=== PATIENT | female | born 1975 | race American Indian/Alaskan Native ===

== ENCOUNTER 2017-02-26 07:37 | Emergency (ER) | payer MEDICAID ==
[2017-02-26 08:23] VITALS: BP 118/98
--- NOTE | 2017-02-26 09:36 | Emergency Department Report ---
HPI - General Chief Complaint: Upper Respiratory Infection Time Seen by Provider: 02/26/17 09:25 - HPI HPI: Patient is a 41-year-old female presents to ED complaining of flulike symptoms 2 days patient states she felt chills, productive cough and generalized body aches as worsening since 2 days ago. Patient states productive cough is yellowish in nature. Patient admits one episode of nonbloody watery stools yesterday. Patient denies any history of asthma or respiratory disease. She states she is taking [id number] medication for cough and cold to no relief She states allergy to Phenergan and Demerol and is not taking any other medications. Patient denies fever so she shortness of breath/chest pain/dizziness or headache ED Past Medical Hx - Past Medical History Previous Medical History?: Yes Hx Psychiatric Treatment: Yes (Anxiety) Hx Asthma: Yes (use for anxiety) - Surgical History Past Surgical History?: Yes Additional Surgical History: tubaligation - Social History Smoking Status: Current Every Day Smoker Substance Use Type: Prescribed - Medications Home Medications: Home Medications Medication Instructions Recorded Confirmed Last Taken Type Acetamin/Codeine 120-12Mg/5 ml 5 ml PO TID PRN #60 ml 02/26/17 Unknown Rx [Tylenol/Codeine] Amoxicillin/K Clav Tab [Augmentin 1 tab PO Q12HR #14 tab 02/26/17 Unknown Rx 875 mg] D-Methorphan/PE/Acetaminophen 1 each PO BID #14 tablet 02/26/17 Unknown Rx [Tylenol Cold Multi-Symp Caplet] ED Review of Systems ROS: Stated complaint: FLU SYMPTOMS/CHEST PAIN Other details as noted in HPI Constitutional: denies: chills, fever Eyes: denies: eye pain, eye discharge, vision change ENT: denies: ear pain, throat pain Respiratory: cough. denies: shortness of breath, wheezing Cardiovascular: denies: chest pain, palpitations Endocrine: no symptoms reported Gastrointestinal: denies: abdominal pain, nausea, vomiting, diarrhea Genitourinary: denies: urgency, dysuria, frequency, hematuria, discharge Musculoskeletal: denies: back pain, joint swelling, arthralgia Skin: denies: rash, lesions Neurological: denies: headache, weakness, paresthesias Psychiatric: denies: anxiety, depression Hematological/Lymphatic: denies: easy bleeding, easy bruising Physical Exam - Physical Exam Vital Signs: Vital Signs 02/26/17 08:17 Temperature 98.7 F Pulse Rate 86 Respiratory 16 Rate Blood Pressure 118/98 O2 Sat by Pulse 100 Oximetry Physical Exam: GENERAL: Alert and oriented x3, mild distress, Normal Gait, atraumatic. Coughing intermittently vigorously during exam HEAD: Head is normocephalic and a-traumatic. EYES: Extra ocular muscles are intact. Pupils are equal, round, and reactive to light and accommodation. EARS: symetrical, atraumatic, non tender, ear canal clear and moderate cerumen, tympanic membrance non inflamed. gross auditory nml bilaterally. NOSE: Nose symetrical, Nontender,Nostrils flared and erythematous bilat but appeared normal. MOUTH:Mouth is well hydrated and without lesions. Tonsils nonerythematous or swollen, Uvula midline, Tongue not elevated. Mucous membranes are moist. Posterior pharynx clear, no exudate or lesions. Patent airways. NECK: Supple. Non edematous, No lymphadenopathy or thyromegaly. LUNGS: Symetrical with respiration, No wheezing, no rales or crackles, CTAB. HEART: S1, S2 present, regular rate and rhythm without murmur, no rubs, no gallops. Non tender to palpation ABDOMEN: No organomegaly was noted,Positive bowel sounds, soft, and non- distended. . Nontender to palpation on all Quadrants, NO CVA tenderness. BACK: Full range of motion, no spinal tenderness, nontender to palpation. EXTREMITIES/MUSCULOSKELETAL: No cyanosis, clubbing, rash, lesions or edema. Full ROM bilaterally. UE Pulses 2+ bilaterally. SKIN: Warm and dry, No lesions, No ulceration or induration present. ED Course Vital Signs 02/26/17 08:17 Temperature 98.7 F Pulse Rate 86 Respiratory 16 Rate Blood Pressure 118/98 O2 Sat by Pulse 100 Oximetry ED Medical Decision Making - Radiology Data Radiology results: report reviewed, image reviewed Fluoro Time In Minutes: ROUTINE CHEST, TWO VIEWS: HISTORY: chest pain. The trachea, heart, mediastinal contour, lung boles and bony thorax are unremarkable. Linear metallic density overlies the left lateral breast which is of uncertain significance. Please correlate with the patient's surgical or biopsy history. IMPRESSION: Unremarkable chest x-ray. Transcribed By: TTR Dictated By: TROY HAMMOND JR, MD Electronically Authenticated By: TROY HAMMOND JR, MD Signed Date/Time: 02/26/17 1010 - Medical Decision Making 41-year-old female presents with urinary tract infection ED course: urinalysis, urine test, influenza A B and chest x-ray ordered Chest x-ray normal series of the above. Influenza test negative , test negative Urinalysis positive for bacteria Patient received Zofran ODT and Tylenol 3 in ED Discussed all findings with the patient. Discussed with patient to continue symptomatic relief with cough suppressant and cold medicines Discussed antibiotics prescriptions for UTI. Discussed the patient to follow up with primary care physician in 3 days. Vital signs are stable patient has no fever patient is in no acute distress or respiratory distress. She is neurologically intact. discussed the patient to return to ED for any worsening symptoms or new symptoms arise Critical care attestation.: If time is entered above; I have spent that time in minutes in the direct care of this critically ill patient, excluding procedure time. ED Disposition Clinical Impression: Bronchitis UTI (urinary tract infection) Qualifiers: Urinary tract infection type: acute cystitis Hematuria presence: with hematuria Qualified Code(s): N30.01 - Acute cystitis with hematuria Disposition: - TO HOME OR SELFCARE Is pt being admited?: No Does the pt Need Aspirin: No Condition: Stable Instructions: Urinary Tract Infection in Women (ED), Chronic Bronchitis (ED) Additional Instructions: Follow-up with your primary care physician. If symptoms worsen or new symptoms arise please return to ED Prescriptions: Acetamin/Codeine 120-12Mg/5 ml [Tylenol/Codeine] 5 ml PO TID PRN #60 ml PRN Reason: Pain Amoxicillin/K Clav Tab [Augmentin 875 mg] 1 tab PO Q12HR #14 tab D-Methorphan/PE/Acetaminophen [Tylenol Cold Multi-Symp Caplet] 1 each PO BID # 14 tablet Referrals: EMILY ACOSTA [Other] - 3-5 Days Forms: Work/School Release Form(ED) Time of Disposition: 10:56
[2017-02-26] MEDS ORDERED: TYLENOL/CODEINE PO ONE (09:44)
[2017-02-26] MEDS ORDERED: ZOFRAN ODT PO ONE (09:44)
[2017-02-26 10:08] LABS: Bacteria,Urine 1+ /HPF (Negative); Bilirubin,Urine NEG (Negative); Blood,Urine NEG (Negative); Ketones,Urine 20 mg/dL (Negative); Leukocyte Esterase,Urine TR (Negative); Mucus,Urine 3+ /HPF; Nitrite,Urine NEG (Negative); Urobilinogen,Urine < 2.0 mg/dL (<2.0)
--- NOTE | 2017-02-26 10:14 | XRay Report ---
ROUTINE CHEST, TWO VIEWS: HISTORY: chest pain. The trachea, heart, mediastinal contour, lung boles and bony thorax are unremarkable. Linear metallic density overlies the left lateral breast which is of uncertain significance. Please correlate with the patient's surgical or biopsy history. IMPRESSION: Unremarkable chest x-ray.
== END 2017-02-26 11:27 | disposition home or self-care (01) ==
LOC: ED 07:37
DX: N39.0 Urinary tract infection, site not specified (principal); J40 Bronchitis, not specified as acute or chronic; F17.210 Nicotine dependence, cigarettes, uncomplicated
CPT/HCPCS: 36415; 71020; 81001; 84702; 87400; 93005; 93010; 99284; Q0162

== ENCOUNTER 2019-04-26 15:00 | Emergency (ER) | payer SELFPAY ==
[2019-04-26] MEDS ORDERED: SODIUM CHLORIDE 0.9% 500 ML 500 ML IV ONE (16:37)
[2019-04-26] MEDS ORDERED: MORPHINE 4 MG/1 ML INJ IV ONE (16:38)
--- NOTE | 2019-04-26 16:40 | Emergency Department Report ---
ED General Adult HPI - General Chief complaint: Dyspnea/Respdistress Stated complaint: SHORTNESS BREATH, LUMP IN MIDDLE OF CHEST Time Seen by Provider: 04/26/19 16:02 Source: patient, RN notes reviewed Mode of arrival: Ambulatory Limitations: No Limitations - History of Present Illness Initial comments: During the entire history and physical examination, I am pet trainer and escorted by metallurgy laboratory techniciandominique Morocho The patient is a 43-year-old female. The patient is not known to this provider previously. 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 She reports that she is currently taking systemic anticoagulation, xarelto She presents to the ER with complaint of nontraumatic left upper extremity pain, no swelling, chest wall pain. The symptoms have been present for 2-3 days. The chest wall pain does not radiate to the back, neck, shoulder. Her left upper extremity pain starts in her left proximal bicep, and then moves onto her left anterior chest wall. There is no vomiting. There is no exertional shortness of breath. There is no diaphoresis. She has taken aspirin today. There is no complaint of headache, neck pain, lower abdominal pain, vomiting, defecating blood, hematemesis, or urinary symptoms. She reports that she is not . Her chest wall pain is constant for the past couple of days. She also endorses that her chest wall pain increases with palpation and deep inspiration. She is concerned that she has a recurrent pulmonary embolism. She reports that she had a screening ultrasound performed in December 2018 of her upper extremity, which was negative. -: Gradual, days(s) Location: left, upper extremity Radiation: other (chest) Quality: aching Consistency: constant Improves with: rest Worsens with: movement - Related Data Previous Rx's Medication Instructions Recorded Last Taken Type Amoxicillin/K Clav Tab [Augmentin 1 tab PO Q12HR #14 tab 02/26/17 Unknown Rx 875 mg] D-Methorphan/PE/Acetaminophen 1 each PO BID #14 tablet 02/26/17 Unknown Rx [Tylenol Cold Multi-Symp Caplet] Acetaminophen [Non-Aspirin Extra 500 mg PO Q6HR PRN #30 tablet 04/26/19 Unknown Rx Strength] Famotidine [Pepcid] 20 mg PO BID #10 tablet 04/26/19 Unknown Rx Allergies Allergy/AdvReac Type Severity Reaction Status Date / Time meperidine [From Demerol] Allergy Seizure Verified 02/26/17 08:17 promethazine [From Phenergan] Allergy Seizure Verified 02/26/17 08:17 ED Review of Systems ROS: Stated complaint: SHORTNESS BREATH, LUMP IN MIDDLE OF CHEST Other details as noted in HPI Constitutional: denies: fever Eyes: denies: eye discharge ENT: denies: congestion Respiratory: denies: wheezing Cardiovascular: chest pain. denies: syncope Gastrointestinal: denies: nausea, vomiting, hematemesis, melena, hematochezia Genitourinary: denies: dysuria Musculoskeletal: myalgia Skin: denies: lesions Neurological: denies: headache Psychiatric: anxiety Hematological/Lymphatic: denies: easy bleeding ED Past Medical Hx - Past Medical History Previous Medical History?: Yes Hx Psychiatric Treatment: Yes (Anxiety) Hx Asthma: Yes (use for anxiety) Additional medical history: PE - Surgical History Past Surgical History?: Yes Additional Surgical History: tubaligation - Social History Smoking Status: Current Every Day Smoker Substance Use Type: Prescribed - Medications Home Medications: Home Medications Medication Instructions Recorded Confirmed Last Taken Type Amoxicillin/K Clav Tab [Augmentin 1 tab PO Q12HR #14 tab 02/26/17 Unknown Rx 875 mg] D-Methorphan/PE/Acetaminophen 1 each PO BID #14 tablet 02/26/17 Unknown Rx [Tylenol Cold Multi-Symp Caplet] Acetaminophen [Non-Aspirin Extra 500 mg PO Q6HR PRN #30 tablet 04/26/19 Unknown Rx Strength] Famotidine [Pepcid] 20 mg PO BID #10 tablet 04/26/19 Unknown Rx ED Physical Exam - General Limitations: No Limitations General appearance: alert, anxious - Head Head exam: Present: atraumatic, normocephalic - Eye Eye exam: Present: normal appearance, EOMI. Absent: nystagmus - ENT ENT exam: Present: normal exam, normal orophraynx, mucous membranes moist, normal external ear exam - Neck Neck exam: Present: normal inspection, full ROM. Absent: tenderness, meningismus - Respiratory Respiratory exam: Present: normal lung sounds bilaterally, chest wall tenderness. Absent: respiratory distress - Cardiovascular Cardiovascular Exam: Present: regular rate, normal rhythm, normal heart sounds. Absent: bradycardia, tachycardia, irregular rhythm, systolic murmur, diastolic murmur, rubs, gallop - GI/Abdominal GI/Abdominal exam: Present: soft, normal bowel sounds. Absent: distended, tenderness, guarding, rebound, rigid - Extremities Exam Extremities exam: Present: normal inspection, full ROM, other (2+ pulses noted in the bilateral upper and lower extremities. The pelvis is stable. There is no long bony tenderness. The muscular compartments are soft. There is no redness, pus, streaking or erythema.). Absent: pedal edema, joint swelling, calf tenderness - Back Exam Back exam: Present: normal inspection. Absent: tenderness, CVA tenderness (R), CVA tenderness (L), paraspinal tenderness, vertebral tenderness - Neurological Exam Neurological exam: Present: alert, other (there is no facial droop. The tongue is midline. Extraocular movements are intact bilaterally. Speaking in full sentences. Hearing is grossly intact. 5 out of 5 strength bilateral upper and lower extremities. Sensation is intact to light touch bilateral upper and lower extremities.). Absent: motor sensory deficit - Psychiatric Psychiatric exam: Present: anxious - Skin Skin exam: Present: warm, dry, intact, normal color. Absent: rash ED Course Vital Signs 04/26/19 04/26/19 18:03 18:37 Pulse Rate 82 82 Respiratory 18 18 Rate Blood Pressure 128/61 118/91 [Right] O2 Sat by Pulse 100 99 Oximetry ED Medical Decision Making - Lab Data Result diagrams: 04/26/19 16:58 04/26/19 16:58 Vital Signs 04/26/19 04/26/19 18:03 18:37 Pulse Rate 82 82 Respiratory 18 18 Rate Blood Pressure 128/61 118/91 [Right] O2 Sat by Pulse 100 99 Oximetry Temperature is documents to be 97.8 Vital Signs 04/26/19 04/26/19 18:03 18:37 Pulse Rate 82 82 Respiratory 18 18 Rate Blood Pressure 128/61 118/91 [Right] O2 Sat by Pulse 100 99 Oximetry Lab Results 04/26/19 04/26/19 04/26/19 Range/Units 16:58 16:58 16:58 WBC 6.7 (4.5-11.0) K/mm3 RBC 4.33 (3.65-5.03) M/mm3 Hgb 13.7 (10.1-14.3) gm/dl Hct 41.3 (30.3-42.9) % MCV 95 (79-97) fl MCH 32 (28-32) pg MCHC 33 (30-34) % RDW 13.3 (13.2-15.2) % Plt Count 224 (140-440) K/mm3 Lymph % (Auto) 32.7 (13.4-35.0) % [place] % (Auto) 8.1 H (0.0-7.3) % Eos % (Auto) 1.2 (0.0-4.3) % Baso % (Auto) 1.0 (0.0-1.8) % Lymph # 2.2 (1.2-5.4) K/mm3 [place] # 0.5 (0.0-0.8) K/mm3 Eos # 0.1 (0.0-0.4) K/mm3 Baso # 0.1 (0.0-0.1) K/mm3 Seg Neutrophils % 57.0 (40.0-70.0) % Seg Neutrophils # 3.8 (1.8-7.7) K/mm3 PT 12.6 (12.2-14.9) Sec. INR 0.93 (0.87-1.13) APTT 27.0 (24.2-36.6) Sec. D-Dimer 148.74 (0-234) ng/mlDDU Sodium 137 (137-145) mmol/L Potassium 4.5 (3.6-5.0) mmol/L Chloride 103.2 (98-107) mmol/L Carbon Dioxide 22 (22-30) mmol/L Anion Gap 16 mmol/L BUN 14 (7-17) mg/dL Creatinine 0.8 (0.7-1.2) mg/dL Estimated GFR > 60 ml/min BUN/Creatinine Ratio 18 % Glucose 81 (65-100) mg/dL Calcium 9.4 (8.4-10.2) mg/dL Magnesium (1.7-2.3) mg/dL Total Bilirubin 0.20 (0.1-1.2) mg/dL AST 23 (5-40) units/L ALT 18 (7-56) units/L Alkaline Phosphatase 71 (35-129) units/L Total Creatine Kinase (30-135) units/L Troponin T < 0.010 (0.00-0.029) ng/mL Total Protein 7.4 (6.3-8.2) g/dL Albumin 4.3 (3.9-5) g/dL Albumin/Globulin Ratio 1.4 % HCG, Qual (Negative) 04/26/19 04/26/19 04/26/19 Range/Units 16:58 16:58 19:26 WBC (4.5-11.0) K/mm3 RBC (3.65-5.03) M/mm3 Hgb (10.1-14.3) gm/dl Hct (30.3-42.9) % MCV (79-97) fl MCH (28-32) pg MCHC (30-34) % RDW (13.2-15.2) % Plt Count (140-440) K/mm3 Lymph % (Auto) (13.4-35.0) % [place] % (Auto) (0.0-7.3) % Eos % (Auto) (0.0-4.3) % Baso % (Auto) (0.0-1.8) % Lymph # (1.2-5.4) K/mm3 [place] # (0.0-0.8) K/mm3 Eos # (0.0-0.4) K/mm3 Baso # (0.0-0.1) K/mm3 Seg Neutrophils % (40.0-70.0) % Seg Neutrophils # (1.8-7.7) K/mm3 PT (12.2-14.9) Sec. INR (0.87-1.13) APTT (24.2-36.6) Sec. D-Dimer (0-234) ng/mlDDU Sodium (137-145) mmol/L Potassium (3.6-5.0) mmol/L Chloride (98-107) mmol/L Carbon Dioxide (22-30) mmol/L Anion Gap mmol/L BUN (7-17) mg/dL Creatinine (0.7-1.2) mg/dL Estimated GFR ml/min BUN/Creatinine Ratio % Glucose (65-100) mg/dL Calcium (8.4-10.2) mg/dL Magnesium 2.10 (1.7-2.3) mg/dL Total Bilirubin (0.1-1.2) mg/dL AST (5-40) units/L ALT (7-56) units/L Alkaline Phosphatase (35-129) units/L Total Creatine Kinase 133 (30-135) units/L Troponin T < 0.010 (0.00-0.029) ng/mL Total Protein (6.3-8.2) g/dL Albumin (3.9-5) g/dL Albumin/Globulin Ratio % HCG, Qual Negative (Negative) - EKG Data -: EKG Interpreted by Ut EKG shows normal: sinus rhythm Rate: normal - EKG Data 04/26/19 20:03 There is no prior EKG available for comparison. The EKG shows a sinus rhythm, 65 bpm, normal axis, QTC is 403 ms, there is some motion artifact. There is early repolarization. Atrial premature complex. Not consistent with STEMI. EKG #2 unremarkable and unchanged from prior. Early repolarization. Not consistent with STEMI. - Radiology Data Radiology results: report reviewed, image reviewed X-ray the chest is negative for acute disease. CT scan of the chest is negative for acute disease. - Medical Decision Making Differential diagnosis, including but not limited to: Costochondritis, GERD, gastritis, hiatal hernia, pneumonia, pulmonary embolism, DVT, aortic dissection Assessment and plan: 43-year-old female who reports currently being on systemic anticoagulation, xarelto, presenting with a complaint of chest wall pain, that radiates from the left upper extremity. She is very concerned about a recurrent DVT. Her pain appears to be out of proportion to exam. Given her history, and examination, a CT scan of the chest was obtained, which showed no pulmonary embolism, or aortic disease. Her upper extremities are symmetric, there is no evidence of redness, pus or streaking, the compartments are soft, and there is no evidence of compartment syndrome. Her troponin is negative 2, her screening laboratory studies are unremarkable, her EKG is unchanged 2. Patient at low risk for major adverse cardiac event as per the heart score. As for this institutions protocol, her contact information will be transferred to one of our local cardiology practices, to arrange close outpatient follow-up [facility] After extensive thorough workup and testing, and prolonged. Of observation in the emergency room, no emergent condition was identified, after appropriate testing was obtained based off of her history. Patient is not a suitable candidate for chronic NSAIDs given her reports of systemic anticoagulation utilization. Have not identified a condition that requires on narcotic therapy. Patient may be discharged to follow up with outpatient primary care, and/or cardiology. Patient arrived after hours, we do not have vascular lab capability, she'll need to have an outpatient DVT study performed of her left upper extremity. We have ordered this. This can be done as an outpatient. No evidence of cellulitis, compartment syndrome, fracture, dislocation, or neurovascular compromise. Critical care attestation.: If time is entered above; I have spent that time in minutes in the direct care of this critically ill patient, excluding procedure time. ED Disposition Clinical Impression: Chest wall pain, Left arm pain Disposition: TO HOME OR SELFCARE Is pt being admited?: No Does the pt Need Aspirin: No Condition: Stable Instructions: Chest Pain (ED) Additional Instructions: please call [phone], listen for the prompts and select option 1 to speak to our staff, Available Sunday through Sunday, 7 am to 5 pm PM to assist you. Make certain to bring the ultrasound requisition form with you. Please return to the ER right away with chest pain, shortness of breath, passing out, lightheadedness, shortness of breath, new, worsening or different symptoms. Continue current outpatient medications. For pain, patient may take Tylenol and Pepcid as directed. Rest, avoid heavy lifting, and avoid strenuous physical activities. Do not take metformin medication for the next 2 days, if patient takes this medication. Drink 4-6 cups of water per day. Avoid consumption of heavy and/or spicy foods and alcohol. Follow-up with an outpatient primary care doctor or recreation technician within the next 3-5 days. Referrals: PRIMARY CARE, [Primary Care Provider] - 3-5 Days [facility] [Provider Group] - 3-5 Days [facility] [Provider Group] - 3-5 Days [facility] [Provider Group] - 3-5 Days
[2019-04-26 17:09] LABS: Basophils # (Auto) 0.1 K/mm3 (0.0-0.1); Eosinophils # (Auto) 0.1 K/mm3 (0.0-0.4); Eosinophils % (Auto) 1.2 % (0.0-4.3); Hematocrit 41.3 % (30.3-42.9); Hemoglobin 13.7 gm/dl (10.1-14.3); Lymphocytes # (Auto) 2.2 K/mm3 (1.2-5.4); Lymphocytes % (Auto) 32.7 % (13.4-35.0); Mean Corpuscular HGB Conc 33 % (30-34); Mean Corpuscular Volume 95 fl (79-97); Monocytes # (Auto) 0.5 K/mm3 (0.0-0.8); Monocytes % (Auto) 8.1 % (0.0-7.3); Platelet Count 224 K/mm3 (140-440); Red Blood Count 4.33 M/mm3 (3.65-5.03); Red Cell Distribution Width 13.3 % (13.2-15.2)
[2019-04-26 17:19] LABS: INR 0.93 (0.87-1.13)
[2019-04-26 17:32] LABS: Alanine Aminotransferase 18 units/L (7-56); Albumin 4.3 g/dL (3.9-5); BUN/Creatinine Ratio 18; Blood Urea Nitrogen 14 mg/dL (7-17); Calcium 9.4 mg/dL (8.4-10.2); Hemolysis Index 10
--- NOTE | 2019-04-26 18:13 | XRay Report ---
CHEST 1 VIEW INDICATION: Chest Pain. COMPARISON: None. FINDINGS: Support devices: None. Heart: Within normal limits. Lungs/Pleura: No acute air space or interstitial disease. Additional findings: None. IMPRESSION: No acute abnormality. Signer Name: Eliseo Huang MD Signed: 04/26/2019 6:08 PM Workstation Name: [id number]
--- NOTE | 2019-04-26 18:43 | Cat Scan Report ---
CTA CHEST WITH IV CONTRAST INDICATION / CLINICAL INFORMATION: Pleuritic chest pain, history of multiple pulmonary emboli and deep venous thrombosis. TECHNIQUE: Axial CT images were obtained through the chest after injection of 100 mL Omnipaque 350 IV contrast. 3 plane MIP and/or 3D reconstructions were produced. All CT scans at this location are performed usin g CT dose reduction for ALARA by means of automated exposure control. COMPARISON: Chest radiograph from the same day FINDINGS: PULMONARY ARTERIES: No pulmonary emboli. THORACIC AORTA: No significant abnormality. HEART: No significant abnormality. CORONARY ARTERIES: No significant calcification. PLEURA: No pleural effusion. No pneumothorax. LYMPH NODES: No adenopathy. LUNGS: No acute air space or interstitial disease. ADDITIONAL FINDINGS: None. UPPER ABDOMEN: No acute findings. SKELETAL STRUCTURES: No significant osseous abnormality. IMPRESSION: 1. No CT evidence for pulmonary embolism. 2. No acute findings. Signer Name: Gerardo Suazo MD Signed: 04/26/2019 6:38 PM Workstation Name: [id number]
[2019-04-26] MEDS ORDERED: KETOROLAC 30 MG/1 ML INJ IV ONE (18:52)
[2019-04-26 21:43] VITALS: BP 126/82
== END 2019-04-26 20:20 | disposition home or self-care (01) ==
LOC: ED 15:00
DX: R07.89 Other chest pain (principal); M79.602 Pain in left arm; F41.9 Anxiety disorder, unspecified; J45.909 Unspecified asthma, uncomplicated; F17.200 Nicotine dependence, unspecified, uncomplicated; Z98.51 Tubal ligation status; Z79.899 Other long term (current) drug therapy; Z86.711 Personal history of pulmonary embolism; Z79.01 Long term (current) use of anticoagulants
CPT/HCPCS: 36415; 71045; 71275; 80053; 82550; 83735; 84484; 84703; 85025; 85379; 85610; 85730; 93005; 93010; 96374; 96375; 99285; J1885; J2270; J7040; Q9967